=== PATIENT | female | born 1990 | race Caucasian/White ===

== ENCOUNTER 2018-01-01 09:19 | Emergency (ER) ==
[2018-01-01 09:35] VITALS: BP 121/80; TEMP 98.8; BMI 25.2
--- NOTE | 2018-01-01 11:56 | CT ---
EXAM: CTA CHEST (PE PROTOCOL) HISTORY: Shortness of breath TECHNIQUE: CTA chest with intravenous contrast. Multiplanar images were provided with 3-D reconstru ctions. 100 mL Omnipaque. COMPARISON: None FINDINGS: No pulmonary arterial filling defect. Normal heart size. No pericardial fluid. Thoracic aorta is w ithin normal limits. Lungs are clear. No consolidations, vascular congestion or pneumothorax. No pleural fluid. The bones reveal at least mild pectus deformity placing a degree of mass effect on the anterior heart border. IMPRESSION: 1. No pulmonary arterial thromboembolism. 2. Lungs are clear.
--- NOTE | 2018-01-01 16:09 | ED.PDOC ---
General ED Provider: Dr. EUSEBIA THOMAS Chief Complaint: Chest Pain Stated Complaint: chest pain Time Seen by Physician: 09:33 Mode of Arrival: Walk-In Information Source: Patient Exam Limitations: No limitations Primary Care Provider: JENNIE BENDER Nursing and Triage Documentation Reviewed and Agree: Yes Reviewed sepsis parameters & appropriate labs ordered?: Yes System Inflammatory Response Syndrome: Not Applicable Sepsis Protocol: For patient's 13 years and over: Temp is 96.8 and below OR 101 and greater Pulse >90 BPM Resp >20/minute Acutely Altered Mental Status Are patient's symptoms suggestive of a new infection, such as: -Pneumonia -Skin, Soft Tissue -Endocarditis -UTI -Bone, Joint Infection -Implantable Device -Acute Abdominal Infection -Wound Infection -Meningitis -Blood Stream Catheter Infection -Unknown System Inflammatory Response Syndrome: Not Applicable Cardiovascular Complaint Exam - Chest Pain Complaint/Exam Onset: Gradual Duration: this morning Symptoms Are: Resolved Timing: Intermittent Length of Chest Pain Episodes: 20 min Initial Severity: Mild Current Severity: None Location: Reports: Midsternal Pain Radiates: Reports: Back, Left shoulder Character: Reports: Dull, Aching Aggravating: Reports: None Alleviating: Reports: Rest, Upright position, Spontaneous resolution Associated Signs and Symptoms: Reports: Hemoptysis Related History: Reports: Similar episode (last year had a negative stress test ) Related Surgical History: Reports: None History of Healthcare-Acquired Pneumonia: Reports: No AMI/ACS Risk Factors: Reports: None TAD Risk Factors: Reports: None Pulmonary Embolism Risk Factors: Reports: None Prior Care for this Complaint: No Recent Stress Test: No Recent Echo/LV Function: No JVD Present: No Subcutaneous Emphysema Present: No Diminshed Breath Sounds: No Reproducible Chest Wall Pain: No Bilateral Pulses Present: No Unequal Pulses Noted: No If Risk Factors for AMI/ACS Consider: EKG, Cardiac Enzymes Differential Diagnoses: ACS, Unstable Angina, GI Diseasae, Lower Resp. Infection , Pulmonary Embolism Quality Indicators For Acute [place] or Cardiac Chest Pain: EKG in 10min. Quality Indicator For Non-Traumatic Chest Pain/Syncope: EKG Performed Review of Systems - Review Of Systems Constitutional: Reports: No symptoms Eyes: Reports: No symptoms Ears, Nose, Mouth, Throat: Reports: No symptoms Respiratory: Reports: No symptoms Cardiac: Reports: Chest pain GI: Reports: No symptoms : Reports: No symptoms Musculoskeletal: Reports: No symptoms Skin: Reports: No symptoms Neurological: Reports: No symptoms Endocrine: Reports: No symptoms Hematologic/Lymphatic: Reports: No symptoms All Other Systems: Reviewed and Negative Past Medical History - Past Medical History Previously Healthy: Yes Endocrine: Reports: None Cardiovascular: Reports: None Respiratory: Reports: None Hematological: Reports: None Gastrointestinal: Reports: None Genitourinary: Reports: None Neuro/Psych: Reports: None Musculoskeletal: Reports: None Cancer: Reports: None Last Menstrual Period: 1 week - Surgical History General Surgical History: Reports: None - Family History Family History: Reports: None - Social History Smoking Status: Never smoker Hx Substance Use: No Alcohol Screening: None Physical Exam - Physical Exam Appearance: Well-appearing, No pain distress, Well-nourished Eyes: JED, EOMI, Conjunctiva clear ENT: Ears normal, Nose normal, Oropharynx normal Respiratory: Airway patent, Breath sounds clear, Breath sounds equal, Respirations nonlabored Cardiovascular: RRR, Pulses normal, No rub, No murmur GI/: Soft, Nontender, No masses, Bowel sounds normal, No Organomegaly Musculoskeletal: Normal strength, ROM intact, No edema, No calf tenderness Skin: Warm, Dry, Normal color Neurological: Sensation intact, Motor intact, Reflexes intact, Cranial nerves intact, Alert, Oriented Psychiatric: Affect appropriate, Mood appropriate Interpretation - Radiology Interpretation Radiology Interpretation By: Radiologist Radiology Results: No acute changes Exam Interpreted: CT Scan - Manager Case Rate: Normal Rhythm: Sinus Ectopy: None Re-Evaluation - Re-Evaluation Time of Re-Evaluation: 13:00 Status: Improved Vital Signs Stable: Yes Pain Level: 0 Appearance: NAD Lungs: Clear Skin: Warm and Dry Neuro: Alert and Oriented X3 CV: RRR - Re-Evaluation Time of Re-Evaluation: 16:09 Status: Improved Vital Signs Stable: Yes Pain Level: 0 Appearance: NAD Skin: Warm and Dry Neuro: Alert and Oriented X3 CV: RRR Physician Notification - Case Discussed Physician Notified: pmd Time of Notification: 16:10 (check troponin if negative may go home) Critical Care Note - Critical Care Note Total Time (mins): 0 Course - Course Hematology/Chemistry: 01/01/18 10:00 01/01/18 10:00 Orders, Labs, Meds: Lab Review 01/01/18 01/01/18 01/01/18 10:00 10:00 10:00 WBC 6.60 RBC 4.87 Hgb 14.0 Hct 40.5 MCV 83.2 MCH 28.7 MCHC 34.6 RDW Coeff of Tresa 12.3 Plt Count 256 Immature Gran % (Auto) 0.2 Neut % (Auto) 60.1 Lymph % (Auto) 28.3 [place] % (Auto) 9.7 Eos % (Auto) 1.2 Baso % (Auto) 0.5 Immature Gran # (Auto) 0.0 Neut # (Auto) 4.0 Lymph # (Auto) 1.9 [place] # (Auto) 0.6 Eos # (Auto) 0.1 Baso # (Auto) 0.0 Sodium 141 Potassium 3.4 L Chloride 106 Carbon Dioxide 24 Anion Gap 14.4 BUN 7 Creatinine 0.78 Estimated GFR (MDRD) 87.00 BUN/Creatinine Ratio 8.97 Glucose 96 Calcium 9.5 Total Bilirubin 0.8 AST 14 L ALT 12 Alkaline Phosphatase 51 Total Creatine Kinase 65 Troponin I < 0.0100 Total Protein 7.3 Albumin 4.2 Globulin 3.1 Albumin/Globulin Ratio 1.35 Serum , Qual Negative 01/01/18 14:50 WBC RBC Hgb Hct MCV MCH MCHC RDW Coeff of Tresa Plt Count Immature Gran % (Auto) Neut % (Auto) Lymph % (Auto) [place] % (Auto) Eos % (Auto) Baso % (Auto) Immature Gran # (Auto) Neut # (Auto) Lymph # (Auto) [place] # (Auto) Eos # (Auto) Baso # (Auto) Sodium Potassium Chloride Carbon Dioxide Anion Gap BUN Creatinine Estimated GFR (MDRD) BUN/Creatinine Ratio Glucose Calcium Total Bilirubin AST ALT Alkaline Phosphatase Total Creatine Kinase Troponin I < 0.0100 Total Protein Albumin Globulin Albumin/Globulin Ratio Serum , Qual Orders Category Date Time Status EKG-(ED ONLY) Stat CARDIO 01/01/18 09:44 Completed NPO REMINDER: IMAGING ONCE CARE 01/01/18 09:44 Completed CBC W/ AUTO DIFF Stat LAB 01/01/18 10:00 Completed COMPREHENSIVE METABOLIC PANEL Stat LAB 01/01/18 10:00 Completed CREATINE KINASE Stat LAB 01/01/18 10:00 Completed SERUM Stat LAB 01/01/18 10:00 Completed TROPONIN I Stat LAB 01/01/18 10:00 Completed TROPONIN I Stat LAB 01/01/18 14:50 Completed URINE Stat LAB 01/01/18 09:[address] CHEST PE PROTOCOL Stat RADS 01/01/18 09:44 Completed Vital Signs: Temp Pulse Resp BP Pulse Ox 01/01/18 09:26 98.8 F 79 20 121/80 97 JUAN Risk Score JUAN Risk Score: Risk Score Odds of by 30D 0 0.1 (0.1-0.2) 1 0.3 (0.2-0.3) 2 0.4 (0.3-0.5) 3 0.7 (0.6-0.9) 4 1.2 (1.0-1.5) 5 2.2 (1.9-2.6) 6 3.0 (2.5-3.6) 7 4.8 (3.8-6.1) Departure - Departure Time of Disposition: 16:10 Disposition: HOME SELF-CARE Discharge Problem: Chest pain Instructions: Chest Pain (DC), Angina (ED) Condition: Good Pt referred to PMD for follow-up: Yes IPMP verified?: No Additional Instructions: Please call your Family Physician as soon as possible to schedule a follow-up appointment. Allergies/Adverse Reactions: Allergies No Known Allergies Allergy (Verified 01/01/18 09:34) Home Medications: Ambulatory Orders Lorazepam [Ativan] 1 mg PO DAILY PRN 01/01/18
== END 2018-01-01 16:54 | disposition home or self-care (01) ==
LOC: ED 09:19
DX: R07.9 Chest pain, unspecified (principal)
CPT/HCPCS: 36415; 80053; 82550; 84484; 84703; 85025; 93005; 93010; 99283

== ENCOUNTER 2018-06-19 22:35 | Emergency (ER) ==
[2018-06-19 23:05] VITALS: BP 144/79; TEMP 99.1; BMI 25.0
[2018-06-19] MEDS ORDERED: LIDOCAINE HCL 1% SDV SUBCUT STA (23:44)
--- NOTE | 2018-06-20 00:18 | ED.PDOC ---
General ED Provider: Dr. DIANE ZAMORANO Chief Complaint: Laceration Stated Complaint: sustained a laceration to the right index finger with a wooden stove had some bleeding which is controlled. Time Seen by Physician: 23:40 Mode of Arrival: Walk-In Information Source: Patient Exam Limitations: No limitations Primary Care Provider: JENNIE BENDER Nursing and Triage Documentation Reviewed and Agree: Yes Does patient meet sepsis criteria?: No If yes, has appropriate treatment been initiated?: No System Inflammatory Response Syndrome: Not Applicable Sepsis Protocol: For patient's 13 years and over: Temp is 96.8 and below OR 101 and greater Pulse >90 BPM Resp >20/minute Acutely Altered Mental Status Are patient's symptoms suggestive of a new infection, such as: -Pneumonia -Skin, Soft Tissue -Endocarditis -UTI -Bone, Joint Infection -Implantable Device -Acute Abdominal Infection -Wound Infection -Meningitis -Blood Stream Catheter Infection -Unknown Review of Systems - Review Of Systems Constitutional: Reports: No symptoms Eyes: Reports: No symptoms Ears, Nose, Mouth, Throat: Reports: No symptoms Respiratory: Reports: No symptoms Cardiac: Reports: No symptoms GI: Reports: No symptoms : Reports: No symptoms Musculoskeletal: Reports: No symptoms Skin: Reports: Other (laceration right index finger) Neurological: Reports: Anxiety Endocrine: Reports: No symptoms Hematologic/Lymphatic: Reports: No symptoms All Other Systems: Reviewed and Negative Past Medical History - Past Medical History Previously Healthy: Yes Endocrine: Reports: None Cardiovascular: Reports: None Respiratory: Reports: None Hematological: Reports: None Gastrointestinal: Reports: None Genitourinary: Reports: None Neuro/Psych: Reports: None Musculoskeletal: Reports: None Cancer: Reports: None Last Menstrual Period: 05/31/18 - Surgical History General Surgical History: Reports: None - Family History Family History: Reports: None - Social History Smoking Status: Never smoker Hx Substance Use: No Alcohol Screening: None - Immunizations Tetanus Shot up to Date: No Physical Exam - Physical Exam Appearance: Well-appearing Pain Distress: Mild Respiratory: Airway patent, Breath sounds clear, Breath sounds equal, Respirations nonlabored Cardiovascular: RRR, Pulses normal, No rub, No murmur Musculoskeletal: Normal strength, ROM intact, No edema, No calf tenderness Skin: Warm, Dry, Normal color Neurological: Alert, Oriented Psychiatric: Anxious Procedures - Laceration/Wound Repair right index finger Wound Description: Linear Wound Length (cm): 2 Wound Width: 0.2 Wound Depth: 0.1 Wound Explored: Clean Wound Irrigated: Yes Wound Prep: Hibiclens Anesthesia: Lidocaine Wound Repaired With: Sutures Suture Size and Type: 5.0 Prolene Number of Sutures: 6 (Running ) Sterile Dressing Applied?: Yes Splint Applied?: No Progress: Tolerated well Critical Care Note - Critical Care Note Total Time (mins): 0 Course - Course Orders, Labs, Meds: Orders Category Date Time Status Lidocaine HCl/Pf [Lidocaine HCl 1% Sdv] MEDS 06/19/18 23:44 Discontinued 5 ml SUBCUT ONCE STA Medications Discontinued Medications Generic Name Dose Route Start Last Admin Trade Name Freq PRN Reason Stop Dose Admin Lidocaine HCl 5 ml 06/19/18 23:44 06/20/18 00:07 Lidocaine Hcl 1% Sdv SUBCUT 06/19/18 23:45 5 ml ONCE STA Administration Vital Signs: Temp Pulse Resp BP Pulse Ox 06/19/18 22:59 99.1 F 94 H 20 144/79 H 99 Departure - Departure Time of Disposition: 00:19 Disposition: HOME SELF-CARE Discharge Problem: Laceration - injury Instructions: Finger Laceration (ED) Condition: Good Pt referred to PMD for follow-up: No IPMP verified?: No Additional Instructions: Have sutures removed in 7-10 days Report any signs of infection. Allergies/Adverse Reactions: Allergies No Known Allergies Allergy (Verified 06/19/18 23:06) Home Medications: Ambulatory Orders 1 [No Reported Medications] 06/19/18 Disposition Discussed With: Patient, Family
== END 2018-06-20 00:23 | disposition home or self-care (01) ==
LOC: ED 22:45
DX: S61.210A Laceration without foreign body of right index finger without damage to nail, initial encounter (principal); W45.8XXA Other foreign body or object entering through skin, initial encounter
CPT/HCPCS: 99283

== ENCOUNTER 2018-09-28 13:23 | Outpatient (CLI) ==
--- NOTE | 2018-09-28 15:33 | DI ---
EXAM: LUMBAR SPINE 5 VIEWS HISTORY: Back pain with sciatica. FINDINGS: There are six lumbar-type vertebral bodies. Mild scoliosis convex to the left. Normal bon e density. Sacroiliac joints are within normal limits. Oblique views reveal intact pars interarticu cain structures. Lateral projections reveal normal vertebral body height and alignment. No fractur e. Subtle facet arthropathy of the lower spine. IMPRESSION: 1. Subtle facet arthropathy of the lower spine with mild scoliosis. Six lumbar-type vertebral alisson s incidentally noted.
== END 2018-09-28 13:24 | disposition home or self-care (01) ==
LOC: RAD 13:23
PROVIDERS: ATTEND Family Medicine
DX: M54.5 Low back pain (principal)